=== PATIENT | male | born 1945 | race Caucasian/White ===

== ENCOUNTER 2016-05-29 09:00 | Outpatient (RCR) | payer OTHER ==
[~2016-05-29 09:00] MED LIST: ASPIRIN-LOW81 MG ORAL; METFORMIN HCL500 M1 ORAL; NAPROXEN500 M1 ORAL; SIMVASTATIN40 MG ORAL; ZOLOFT50 MG ORAL
== END 2016-06-25 | disposition home or self-care (01) ==
LOC: PTY 09:00
DX: M75.101 Unspecified rotator cuff tear or rupture of right shoulder, not specified as traumatic (principal); M75.102 Unspecified rotator cuff tear or rupture of left shoulder, not specified as traumatic; M25.511 Pain in right shoulder; M19.90 Unspecified osteoarthritis, unspecified site; Z87.81 Personal history of (healed) traumatic fracture; Z85.828 Personal history of other malignant neoplasm of skin
CPT/HCPCS: 97110; G0283

== ENCOUNTER 2016-07-02 09:11 | Outpatient (RCR) | payer OTHER | END 2016-07-23 | disposition home or self-care (01) | LOC: PTY 09:11 | DX: M75.101 Unspecified rotator cuff tear or rupture of right shoulder, not specified as traumatic (principal); M75.102 Unspecified rotator cuff tear or rupture of left shoulder, not specified as traumatic; M25.511 Pain in right shoulder; M19.90 Unspecified osteoarthritis, unspecified site; Z87.81 Personal history of (healed) traumatic fracture; Z85.828 Personal history of other malignant neoplasm of skin | CPT/HCPCS: 97110; G0283 ==